=== PATIENT | male | born 1995 | race African-American/Black ===

== ENCOUNTER 2017-02-09 21:16 | Emergency (ER) | payer OTHER ==
[~2017-02-09] VITALS: Ht 198.1 cm; Wt 83.9 kg
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
--- NOTE | 2017-02-09 23:30 | NUR ---
PT REFUSED BLOOD WORK AND URINE SAMPLE. Addendum: 02/09/17 at 2331 by HELEN MADE AWARE.
--- NOTE | 2017-02-09 23:43 | NUR ---
REPORT GIVEN TO CHARGE NURSE
--- NOTE | 2017-02-10 01:01 | NUR ---
Andrey rivero in EDM - 02/10/17 at 0104 by DESTIN Patient discharged to home in stable condition. Written and verbal after care instructions given. Patient verbalizes understanding of instruction. ambulatory with a steady gait. pt w/c per pt request.
--- NOTE | 2017-02-10 01:04 | NUR ---
Patient discharged in stable condition under lapd custody. Written and verbal after care instructions given. Patient verbalizes understanding of instruction. ambulatory with a steady gait
[2017-02-10 05:50] VITALS: BP 125/79
== END 2017-02-10 01:04 | disposition home or self-care (01) ==
LOC: ER 21:18
DX: S39.91XA Unspecified injury of abdomen, initial encounter (principal); W22.8XXA Striking against or struck by other objects, initial encounter; Y93.89 Activity, other specified; Y92.89 Other specified places as the place of occurrence of the external cause; Y99.8 Other external cause status
CPT/HCPCS: 71010; 74176; 82962 ×2; 99284; A4606; Z7610